=== PATIENT | female | born 1950 | race Hispanic/Latino ===

== ENCOUNTER 2016-07-31 07:03 | Day surgery (SDC) | payer MEDICARE, BC ==
[2015-04-22 12:10] VITALS: BMI 30.7
[2016-07-31] MEDS ORDERED: Benzocaine/Butamben/Tetracai 14-2-2% TOP Spray TOP ONE (08:13)
[2016-07-31] MEDS ORDERED: Propofol 10 mg/ml Inj (20 ML) ONE (08:26)
[2016-07-31] MEDS ORDERED: Sodium Chloride 0.9% 1,000 ML IV SCH (09:45)
[2016-07-31 10:14] VITALS: BP 123/72; PULSE 60; RESP 18; TEMP 98.3; O2SAT 99
== END 2016-07-31 11:39 | disposition home or self-care (01) ==
LOC: ENDO 07:03
PROVIDERS: ATTEND Internal Medicine Gastroenterology
DX: K21.0 Gastro-esophageal reflux disease with esophagitis (principal); K44.9 Diaphragmatic hernia without obstruction or gangrene; K29.50 Unspecified chronic gastritis without bleeding
CPT/HCPCS: 43239; 88305; 88312; 88342; J2001; J2704; J7040 ×2

== ENCOUNTER 2018-04-15 10:54 | Outpatient (CLI) | payer MEDICARE, BC | END 2018-04-15 10:55 | disposition home or self-care (01) | LOC: RAD 10:54 | DX: Z12.31 Encounter for screening mammogram for malignant neoplasm of breast (principal) ==

== ENCOUNTER 2018-07-28 07:31 | Outpatient (CLI) | payer MEDICARE, BC | END 2018-07-28 07:32 | disposition home or self-care (01) | LOC: RAD 07:31 ==